=== PATIENT | female | born 2000 | race Asian ===

== ENCOUNTER 2024-04-08 21:29 | Emergency (ER) | payer OTHER ==
[~2024-04-08] VITALS: Ht 157.5 cm; Wt 59.0 kg
[2024-04-09 03:59] VITALS: BP 101/69; O2SAT 99
== END 2024-04-09 04:00 | disposition home or self-care (01) ==
LOC: ER 21:35
DX: F10.129 Alcohol abuse with intoxication, unspecified (principal); Y90.9 Presence of alcohol in blood, level not specified
CPT/HCPCS: 82962-TC